=== PATIENT | female | born 1990 | race Hispanic/Latino ===

== ENCOUNTER 2018-04-22 08:54 | Emergency (ER) | payer MEDICAID, OTHER ==
[~2018-04-22 08:54] MED LIST: PREN-114 PO
[2018-04-22] MEDS ORDERED: FAMOTIDINE 20MG TAB 20 MG TAB ONE (09:13)
[2018-04-22] MEDS ORDERED: DIPHENHYDRAMINE HCL 25 MG CAPSULE ONE (09:13)
[2018-04-22] MEDS ORDERED: PREDNISONE 20 MG TABLET ONE (09:13)
[2018-04-22] MEDS ORDERED: IPRATROPIUM/ALBUTEROL SULFATE 3 ML SOLUTION IH ONE (09:14)
== END 2018-04-22 10:02 | disposition home or self-care (01) ==
LOC: EDH 08:54
DX: L50.9 Urticaria, unspecified (principal); J98.01 Acute bronchospasm
CPT/HCPCS: 94640; 99284; Q0163

== ENCOUNTER 2018-07-10 10:40 | Emergency (ER) | payer SELFPAY | END 2018-07-10 11:44 | disposition home or self-care (01) | LOC: EDH 10:40 | DX: S80.01XA Contusion of right knee, initial encounter (principal); J45.909 Unspecified asthma, uncomplicated; W18.39XA Other fall on same level, initial encounter; Y93.01 Activity, walking, marching and hiking; Y92.89 Other specified places as the place of occurrence of the external cause; Y99.8 Other external cause status ==

== ENCOUNTER 2019-05-25 19:16 | Emergency (ER) | payer OTHER ==
[2019-05-25] MEDS ORDERED: ACETAMINOPHEN EXTRA STRENGTH 500 MG TABLET ONE (19:32)
[2019-05-25] MEDS ORDERED: GUAIFENESIN-CODEINE 5 ML SYRUP ONE (19:33)
== END 2019-05-25 21:07 | disposition home or self-care (01) ==
LOC: EDH 19:16
DX: J11.1 Influenza due to unidentified influenza virus with other respiratory manifestations (principal); J45.909 Unspecified asthma, uncomplicated

== ENCOUNTER 2019-10-28 18:07 | Emergency (ER) | payer MEDICAID | END 2019-10-28 19:39 | disposition home or self-care (01) | LOC: EDH 18:07 | DX: S93.401A Sprain of unspecified ligament of right ankle, initial encounter (principal); J45.909 Unspecified asthma, uncomplicated; Z98.890 Other specified postprocedural states; X58.XXXA Exposure to other specified factors, initial encounter; Y93.89 Activity, other specified; Y92.89 Other specified places as the place of occurrence of the external cause; Y99.8 Other external cause status | CPT/HCPCS: 73610 ==

== ENCOUNTER 2023-11-27 08:37 | Emergency (ER) | payer SELFPAY ==
[~2023-11-27] VITALS: Ht 165.1 cm; Wt 104.3 kg
[2023-11-27] MEDS ORDERED: BACI3.5O4 OP (09:18)
[2023-11-27 09:24] VITALS: BP 129/88; PULSE 81; RESP 14; O2SAT 97
== END 2023-11-27 09:31 | disposition home or self-care (01) ==
LOC: EDH 08:37
DX: H10.33 Unspecified acute conjunctivitis, bilateral (principal); J45.909 Unspecified asthma, uncomplicated; Z79.899 Other long term (current) drug therapy; Z98.890 Other specified postprocedural states

== ENCOUNTER 2024-05-13 15:19 | Emergency (ER) | payer SELFPAY ==
[~2024-05-13] VITALS: Ht 165.1 cm; Wt 108.9 kg
[~2024-05-13 15:19] MED LIST changes: +BACI3.5O4 OP
[2024-05-13] MEDS ORDERED: NAPR-1084 PO (16:11)
--- NOTE | 2024-05-13 16:12 | ERN ---
General Chief Complaint: FOOT INJURY/PAIN Stated Complaint: SWOLLEN LEFT FOOT SWOLLEN DUE TO FALL Time Seen by MD: 15:23 Source: patient History of Present Illness Initial Comments Patient is a 33-year-old female coming in to be evaluated for left foot pain. Patient states this happened yesterday when she stepped incorrectly. She states that the pain is localized to the lateral aspect of her foot. She states that the foot has ecchymosis well. Allergies: Coded Allergies: No Known Allergies (Unverified Allergy, Unknown, 01/18/14) Home Meds Active Scripts Bacitracin/Polymyxin B Sulfate (Bacitracin-Polymyxin Eye Oint) 500 Unit-10,000 Unit/Gram Oint...g., 3.5 GM OP Q4HPRN, #7 APPL Prov:CARROLL PATEL MD 11/27/23 Reported Medications Vit/Iron Fumarate/FA ( Vitamin Tablet) 1 Each Tablet, 1 EACH PO DAILY, TAB 1 Refill 01/18/14 Past Medical History Past Medical History: Asthma Past Surgical History: Female( History) LMP: Apr 23, 2024 ROS Dictation CONSTITUTIONAL: No chills, no fever, no weakness, no diaphoresis, no malaise. HEAD/FACE: No signs of trauma. EENT: No eye pain, no blurred vision, no tearing, no double vision, no ear pain, no ear discharge, no nose pain, no nasal congestion, no throat pain, no throat swelling, no mouth pain. RESPIRATORY: No cough, no orthopnea, no SOB, no stridor, no wheezing. CARDIOVASCULAR: No chest pain, no edema, no palpitations, no syncope. GASTROINTESTINAL/ABDOMINAL: No abdominal pain, no constipation, no diarrhea, no nausea, no vomiting. GENITOURINARY: No abnormal discharge, no dysuria, no frequent urination, no hematuria. No complaints of pain in the genitals. MUSCULOSKELETAL: No back pain, no gout, no joint pain, no joint swelling, muscle pain, no muscle stiffness, no neck pain. INTEGUMENTARY: No change in color, no change in hair/nails, no dryness, no lesion, no lumps, no rash. NEUROLOGICAL/PSYCH: No anxiety, not depressed, no emotional problem, no headach e, no numbness, no pre-existing deficit, no history of seizures, no tremors, no weakness. HEMATOLOGIC/LYMPHATIC: Not anemic, no history of blood clots, no apparent bleeding, no bruising, glands not swollen. All Systems Negative, Except as Noted. Physical Exam Physical Exam Dictation VITAL SIGNS: Reviewed. GENERAL APPEARANCE: Alert, oriented x3, no acute distress, obese. HEAD AND FACE: Non-traumatic. EYES: PERRL, pink conjunctivas, eyelid no trauma, anterior chamber clear. EARS: Pinnas intact and no signs of trauma or erythema. Ear canals clear and no discharge. TMs no erythema. NOSE: No discharge, no bleeding. OROPHARYNX: Mouth normal, teeth no caries, tongue pink. Pharynx clear, no erythema. Tonsils no exudates, no abscesses noted. Mucous membrane moist. NECK: Supple, non-tender, no thyromegaly, no masses, no JVD, no bruits. BREAST: Deferred. CHEST: No tenderness, no crepitus, no paradoxical movement, no retractions. LUNGS: Clear, well-ventilated, symmetric, no rales, no wheezing, no rhonchi, no stridor, good breath sounds bilaterally. HEART: Regular rate, regular rhythm, no murmur, no gallops. VASCULAR: No peripheral edema. ABDOMEN: Soft, positive bowel sounds, nondistended, no guarding, nontender, no rebound, no masses no hepatomegaly, no splenomegaly, no Houston's sign, no hernias. RECTAL: Deferred. GENITAL: Deferred. NEUROLOGICAL: Normal speech, gross motor function intact, gross sensory function intact. MUSCULOSKELETAL: Neck nontender, full range of motion, back nontender, full range of motion. EXTREMITIES: Nontender, full range of motion. Left foot pain ecchymosis of the lateral aspect of the foot. Mild swelling. SKIN: Color pink, dry, no turgor, no rash, no lacerations, no abrasions, no contusions. LYMPHATICS: Deferred. Results Laboratory and Microbiology Labs Reviewed?: Yes EKG/XRAY/US/CT/MRI X-RAY Comment X-ray left foot-4th metatarsal fracture MDM MDM: Differential diagnosis: metatarsal fracture, contusion, Patient is a 33-year-old female coming in to be evaluated for left foot pain. X-ray disclose a 4th metatarsal fracture. Orthopedic boot will be applied, I advised her appropriate follow up with patent law specialist that she will be referred to. Patient will be discharged with symptomatic medication. ED Course Orders Procedure Category Date Status Time Foot Comp 3+Vws Lt RAD 05/13/24 Taken 15:38 Acetaminophen 500mg PHA 05/13/24 Complete Tab (Tylenol 500mg T 16:00 Current Medications Medications (Trade) Dose Ordered Sig/Renate Route PRN Reason Start Time Stop Time Status Last Admin Dose Admin Acetaminophen (TYLenol 500MG TAB) 500 mg ONCE ONCE PO 05/13/24 16:00 05/13/24 16:01 DC Vital Signs Date Time Temp Pulse Resp B/P (MAP) Pulse Ox O2 Delivery O2 Flow Rate FiO2 05/13/24 15:25 98.1 100 18 180/93 99 Room Air 0 DX & DISP Disposition: Discharge Departure Impression: Primary Impression: Fracture of fourth metatarsal bone Condition: Stable Scripts Naproxen Sodium (Naproxen Cr) 500 Mg Tbmp.24hr 500 MG PO BID PRN for PAIN LEVEL 6 TO 10 for 7 Days, #14 TAB.SR Prov: ANDRÉS LOGAN MD 05/13/24 Additional Instructions: FOLLOW-UP WITH PRIMARY CARE PROVIDER IN 1 TO 2 DAYS. TAKE MEDICATIONS DIRECTED HERE IN THE EMERGENCY ROOM. OKAY TO CONTINUE HOME MEDICATIONS UNLESS OTHERWISE DISCUSSED DURING YOUR VISIT IN THE EMERGENCY ROOM TODAY. RETURN TO YOUR NEAREST EMERGENCY ROOM IF SYMPTOMS WORSEN OR IF THERE IS NO IMPROVEMENT. CALL 911 IF YOU NEED IMMEDIATE ASSISTANCE. TAKE TYLENOL [id number] NEEDED AND IF NO CONTRAINDICATIONS ARE PRESENT. INCREASE ORAL HYDRATION. A WOUND CULTURE OR URINE CULTURE WAS ORDERED HERE IN THE EMERGENCY ROOM DEPARTMENT PLEASE FOLLOW-UP WITH PRIMARY CARE PROVIDER AND ADVISE THEM TO GET REPEAT PORTS FROM OUR FACILITY. IF YOU HAD ANY MATTHEW WRAP/SPLINTS THAT WERE APPLIED HERE, PLEASE DO NOT REMOVE THEM UNTIL YOU SEE YOUR PRIMARY CARE OR SPECIALTY. Referrals: Referrals: SELF,REFERRAL (PCP) TERRI PARMAR MD, LUIS A MD Time of Disposition: 16:10 ANDRÉS LOGAN MD May 13, 2024 16:12
--- NOTE | 2024-05-13 16:22 | HMCIMG ---
Exam Type: FOOT COMP 3+VWS LT Clinical Information: FALL Comparison: None Findings and impression: Comminuted fractures of the distal aspect of the fourth and fifth metatarsals. No significant displacement. No other abnormalities.
[2024-05-13] MEDS: acetaMINOPHEN 500 MG TABLET PO ONE (16:44)
[2024-05-13 16:53] VITALS: BP 150/76; PULSE 88; RESP 20; TEMP 98.2; O2SAT 100
--- NOTE | 2024-05-13 17:01 | NUR ---
foot mobilizer placed good capillary refill no concerns
== END 2024-05-13 17:02 | disposition home or self-care (01) ==
LOC: EDH 15:19
DX: S92.342A Displaced fracture of fourth metatarsal bone, left foot, initial encounter for closed fracture (principal); J45.909 Unspecified asthma, uncomplicated; W01.0XXA Fall on same level from slipping, tripping and stumbling without subsequent striking against object, initial encounter; Y93.89 Activity, other specified; Y92.89 Other specified places as the place of occurrence of the external cause; Y99.8 Other external cause status
CPT/HCPCS: 73630; 99284